=== PATIENT | male | born 1940 | race Caucasian/White ===

== ENCOUNTER 2024-02-25 06:53 | Day surgery (SDC) | payer MEDICARE, BC ==
[2024-02-24 11:50] LABS: BASOPHILS % (AUTO) 0.7 % (0-1); EOSINOPHILS # (AUTO) 0.1 X10'3 (0-0.9); EOSINOPHILS % (AUTO) 1.7 % (0-6); HEMATOCRIT 41.8 % (42.0-52.0); HEMOGLOBIN 14.1 g/dl (14.0-17.9); LYMPHOCYTES # (AUTO) 2.2 X10'3 (1.1-4.8); LYMPHOCYTES % (AUTO) 30.6 % (21-51); MEAN CORPUSCULAR HEMOGLOBIN 34.8 PG (27.0-31.0); MEAN CORPUSCULAR HGB CONC 33.7 g/dL (33.0-36.5); MEAN CORPUSCULAR VOLUME 103.3 FL (78-98); MEAN PLATELET VOLUME 7.7 FL (7.4-10.4); MONOCYTES # (AUTO) 0.6 X10'3 (0-0.9); NEUTROPHILS # (AUTO) 4.2 X10'3 (1.8-7.7); PLATELET COUNT 190 X10'3 (140-440); RED BLOOD COUNT 4.05 X10'6 (4.70-6.10); RED CELL DISTRIBUTION WIDTH 15.3 % (11.5-14.5); WHITE BLOOD COUNT 7.1 X10'3 (4.5-11.0)
[2024-02-24 12:00] LABS: ALBUMIN 4.1 G/DL (3.4-5.0); ANION GAP 10 (8-16); BLOOD UREA NITROGEN 37 MG/DL (7-18); BUN/CREATININE RATIO 19.9 (10.0-20.0); CALCIUM 10.1 MG/DL (8.5-10.1); CHLORIDE 108 MMOL/L (99-107); CREATININE 1.86 MG/DL (0.60-1.10); GLUCOSE 134 MG/DL (70-104); POTASSIUM 4.2 MMOL/L (3.5-5.1); SODIUM 141 MMOL/L (135-145); TOTAL CARBON DIOXIDE 22.8 MMOL/L (24-32); eGFR 35 ML/MIN
[2024-02-24 12:03] LABS: APTT 33 SECONDS (22-32); INR 1.4 INR; PROTHROMBIN TIME 15.1 SECONDS (9.0-12.0)
[~2024-02-25] VITALS: Ht 170.2 cm; Wt 80.7 kg
[2024-02-25] VITALS (30 sets, daily range): BP systolic 86–145; BP diastolic 33–119; PULSE 59–119; RESP 12–30; TEMP 97.8; O2SAT 90–98
[2024-02-25] MEDS ORDERED: ALLO300T8 PO (07:24)
[2024-02-25] MEDS ORDERED: LEVO75TA7 PO (07:24)
[2024-02-25] MEDS ORDERED: OMEG-42 PO (07:24)
[2024-02-25] MEDS ORDERED: BLACK CHERRY (07:24)
[2024-02-25] MEDS ORDERED: CIDE300T3 (07:24)
[2024-02-25] MEDS ORDERED: SIMV10TA98 PO (07:24)
[2024-02-25] MEDS ORDERED: CHOL100053 PO (07:24)
[2024-02-25] MEDS ORDERED: CA C1TAB89 PO (07:24)
[2024-02-25] MEDS ORDERED: MULT-467 PO (07:24)
[2024-02-25] MEDS ORDERED: CRAN200C PO (07:24)
[2024-02-25] MEDS ORDERED: WARF-55 PO (07:24)
[2024-02-25] MEDS ORDERED: LISI10TA27 PO (07:24)
[2024-02-25] MEDS ORDERED: RED1TAB. (07:24)
[2024-02-25] MEDS ORDERED: NIAC500T44 PO (07:24)
[2024-02-25] MEDS: normal saline 1,000 ML IV SCH (09:13)
[2024-02-25] MEDS: LORazepam 0.5 MG tablet PO PRN (09:13)
[2024-02-25] MEDS: sodium bicarbonate 1meq/ml syr 150 ML in dextrose 5%-water 1,000 ML IV SCH (09:13)
[2024-02-25] MEDS: diphenhydrAMINE 25mg capsule PO PRN (09:20)
[2024-02-25] MEDS ORDERED: LIDOcaine 1% (10mg/ml) 2ml vial ONE (09:35)
[2024-02-25] MEDS ORDERED: midazolam 1 mg/ML 2ml injection ONE (09:35)
[2024-02-25] MEDS ORDERED: nitroGLYCERIN 500mcg/5mL D5W 5 ML IV ONE (09:35)
[2024-02-25] MEDS ORDERED: heparin 1,000unit/ml 10ml vial 10 ML ONE (09:35)
[2024-02-25] MEDS ORDERED: fentaNYL/PF 50MCG/1 ML 2ML syringe ONE (09:35)
[2024-02-25] MEDS ORDERED: verapamil 2.5 mg/ml inj IV ONE (09:35)
[2024-02-25] MEDS ORDERED: iohexol 350 MG/ML 50ML vial IV ONE (09:36)
[2024-02-25] MEDS ORDERED: iohexol 350MG/ML 100ml bottle IV ONE ×2 (09:36→10:48)
[2024-02-25] MEDS: acetylcysteine 200 MG/ml 4ml vial PO SCH (09:52)
[2024-02-25] MEDS ORDERED: LIDOcaine 1% 30ml preserv. free vial ONE (10:44)
[2024-02-25] MEDS ORDERED: heparin 25,000 UNIT/250ml bag 250 ML IV ONE (10:59)
[2024-02-25] MEDS ORDERED: nitroGLYCERIN 0.4mg SUBLingual tab SL PRN (12:15)
[2024-02-25] MEDS ORDERED: OXAZEpam 15mg capsule PO PRN (12:15)
[2024-02-25] MEDS ORDERED: metoprolol tartrate 1mg/ml inj IV PRN (12:15)
[2024-02-25] MEDS ORDERED: atropine 0.1mg/ml 10ml syringe IV PRN (12:15)
[2024-02-25] MEDS ORDERED: HYDROcodone/acetaminophen 10/325mg tab PO PRN (12:15)
[2024-02-25] MEDS ORDERED: HYDROcodone/acetaminophen 5mg/325mg tablet PO PRN (12:15)
[2024-02-25] MEDS ORDERED: DOBUTamine-DoBUTrex 500mg/D5W 250 ML IV SCH (12:15)
[2024-02-25] MEDS ORDERED: SODIUM BICARBONATE 150MEQ IN D5W 1,000 ML IV ONE (12:20)
[2024-02-25] MEDS: DOBUTamine 2000 MCG/250ML BAG IV ONE (15:03)
[2024-02-25] MEDS: ACETYLCYSTEINE 200 MG/1 ML 4 ML ORAL SOLUTION PO SCH (18:33)
[2024-03-01 06:15] LABS: ISTAT HGB ART 11.6 g/dl (14.0-17.9); ISTAT Hct ART 34 %PCV (42-52); ISTAT O2 SATURATION ARTERIAL 94 % (95-98); ISTAT SOURCE BLNK
[2024-03-01 06:16] LABS: ISTAT HGB MIX 11.6 g/dl (14.0-17.9); ISTAT Hct MIX 34 %PCV (42-52); ISTAT O2 SATURATION MIX VENOUS 64 % (60-80); ISTAT SOURCE BLNK
== END 2024-02-25 19:00 | disposition home or self-care (01) ==
LOC: SSTAY O 06:53
PROVIDERS: ATTEND Internal Medicine Cardiovascular Disease
DX: I35.0 Nonrheumatic aortic (valve) stenosis (principal); I25.10 Atherosclerotic heart disease of native coronary artery without angina pectoris; I44.7 Left bundle-branch block, unspecified; I42.9 Cardiomyopathy, unspecified; I11.0 Hypertensive heart disease with heart failure; I50.22 Chronic systolic (congestive) heart failure; E03.9 Hypothyroidism, unspecified; E78.5 Hyperlipidemia, unspecified; Z86.73 Personal history of transient ischemic attack (TIA), and cerebral infarction without residual deficits; Z79.01 Long term (current) use of anticoagulants; Z79.890 Hormone replacement therapy; Z79.899 Other long term (current) drug therapy; Z90.49 Acquired absence of other specified parts of digestive tract; Z98.890 Other specified postprocedural states; Z88.0 Allergy status to penicillin; Z83.3 Family history of diabetes mellitus; Z80.9 Family history of malignant neoplasm, unspecified
CPT/HCPCS: 36415; 80048; 82803; 85014; 85025; 85610; 85730; 93005; 93351; 93460; 99152; 99153; A4615; A6258; A6402; C1725; C1751; C1769; C1894; J1250; J1644; J2001; J2250; J3010; J3490; J7030; J7070; Q0163; Q9967; Z7610; 76937; A6449

== ENCOUNTER 2024-02-27 11:19 | Day surgery (SDC) | payer MEDICARE, BC ==
[~2024-02-27] VITALS: Ht 170.2 cm; Wt 82.5 kg
[2024-02-27] VITALS (11 sets, daily range): BP systolic 135–159; BP diastolic 46–88; PULSE 62–78; RESP 12–14; TEMP 98; O2SAT 96–99
[~2024-02-27 11:19] MED LIST: ALLO300T8 PO; BLACK CHERRY; CA C1TAB89 PO; CHOL100053 PO; CIDE300T3; CRAN200C PO; LEVO75TA7 PO; LISI10TA27 PO; MULT-467 PO; NIAC500T44 PO; OMEG-42 PO; RED1TAB.; SIMV10TA98 PO; WARF-55 PO
[2024-02-27] MEDS ORDERED: LORazepam 0.5 MG tablet PO PRN ×2 (11:40→12:15)
[2024-02-27] MEDS: normal saline 1,000 ML IV SCH (12:14)
[2024-02-27] MEDS: diphenhydrAMINE 25mg capsule PO PRN (12:15)
[2024-02-27] MEDS ORDERED: normal saline 1,000 ML IV SCH (12:15)
[2024-02-27] MEDS ORDERED: diphenhydrAMINE 25mg capsule PO PRN (12:15)
[2024-02-27 12:16] LABS: BASOPHILS % (AUTO) 0.6 % (0-1); EOSINOPHILS # (AUTO) 0.1 X10'3 (0-0.9); EOSINOPHILS % (AUTO) 1.8 % (0-6); HEMATOCRIT 34.5 % (42.0-52.0); HEMOGLOBIN 11.5 g/dl (14.0-17.9); LYMPHOCYTES # (AUTO) 1.8 X10'3 (1.1-4.8); LYMPHOCYTES % (AUTO) 21.7 % (21-51); MEAN CORPUSCULAR HEMOGLOBIN 34.3 PG (27.0-31.0); MEAN CORPUSCULAR HGB CONC 33.3 g/dL (33.0-36.5); MEAN PLATELET VOLUME 7.9 FL (7.4-10.4); MONOCYTES # (AUTO) 0.8 X10'3 (0-0.9); MONOCYTES % (AUTO) 9.3 % (2-12); NEUTROPHILS # (AUTO) 5.5 X10'3 (1.8-7.7); NEUTROPHILS % (AUTO) 66.6 % (42-75); PLATELET COUNT 152 X10'3 (140-440); RED BLOOD COUNT 3.35 X10'6 (4.70-6.10); RED CELL DISTRIBUTION WIDTH 15.1 % (11.5-14.5); WHITE BLOOD COUNT 8.2 X10'3 (4.5-11.0)
[2024-02-27] MEDS ORDERED: iohexol 350MG/ML 100ml bottle IV ONE ×2 (12:18→12:24)
[2024-02-27] MEDS ORDERED: LIDOcaine 1% 30ml preserv. free vial ONE (12:18)
[2024-02-27] MEDS ORDERED: heparin 1,000unit/ml 10ml vial 10 ML ONE (12:18)
[2024-02-27] MEDS ORDERED: nitroGLYCERIN 500mcg/5mL D5W 0 ML IV ONE (12:19)
[2024-02-27] MEDS ORDERED: heparin 25,000 UNIT/250ml bag 250 ML IV ONE (12:24)
[2024-02-27] MEDS ORDERED: fentaNYL/PF 50MCG/1 ML 2ML syringe ONE (12:24)
[2024-02-27] MEDS ORDERED: midazolam 1 mg/ML 2ml injection ONE (12:24)
[2024-02-27 12:26] LABS: APTT 27 SECONDS (22-32); PROTHROMBIN TIME 10.9 SECONDS (9.0-12.0)
[2024-02-27 12:30] LABS: ALBUMIN 3.4 G/DL (3.4-5.0); ANION GAP 10 (8-16); BLOOD UREA NITROGEN 29 MG/DL (7-18); BUN/CREATININE RATIO 15.4 (10.0-20.0); CALCIUM 9.3 MG/DL (8.5-10.1); CHLORIDE 106 MMOL/L (99-107); CREATININE 1.88 MG/DL (0.60-1.10); GLUCOSE 145 MG/DL (70-104); SODIUM 140 MMOL/L (135-145); TOTAL CARBON DIOXIDE 23.7 MMOL/L (24-32); eCRCL 27 ML/MIN; eGFR 34 ML/MIN
[2024-02-27] MEDS ORDERED: verapamil 2.5 mg/ml inj IV ONE (12:32)
[2024-02-27] MEDS ORDERED: nitroGLYCERIN 500mcg/5mL D5W 5 ML IV ONE ×2 (14:08→14:22)
[2024-02-27] MEDS ORDERED: clopidogrel 300mg tablet ONE (14:24)
[2024-02-27] MEDS ORDERED: aspirin 325mg tablet ONE (14:55)
[2024-02-27] MEDS ORDERED: ondansetron/PF 4mg/2ml inj IV PRN (15:40)
[2024-02-27] MEDS ORDERED: OXAZEpam 15mg capsule PO PRN (15:40)
[2024-02-27] MEDS ORDERED: proCHLORperazine 10 MG/2 ml inj IV PRN (15:40)
[2024-02-27] MEDS ORDERED: CLOP75TA34 PO (15:56)
[2024-02-27] MEDS ORDERED: ASPI-1265 PO (15:56)
[2024-02-27] MEDS ORDERED: ROSU40TA PO (15:56)
[2024-02-27] MEDS: sodium bicarbonate 1meq/ml syr 150 ML in dextrose 5%-water 1,000 ML IV ONE (17:26)
[2024-02-28] MEDS ORDERED: clopidogrel 75mg tablet PO SCH (08:00)
== END 2024-02-27 20:45 | disposition home or self-care (01) ==
LOC: SSTAY O 11:19
PROVIDERS: ATTEND Internal Medicine Cardiovascular Disease
DX: I25.10 Atherosclerotic heart disease of native coronary artery without angina pectoris (principal); I35.0 Nonrheumatic aortic (valve) stenosis; I44.7 Left bundle-branch block, unspecified; I42.9 Cardiomyopathy, unspecified; I11.0 Hypertensive heart disease with heart failure; I50.22 Chronic systolic (congestive) heart failure; E03.9 Hypothyroidism, unspecified; E78.5 Hyperlipidemia, unspecified; Z86.73 Personal history of transient ischemic attack (TIA), and cerebral infarction without residual deficits; Z87.891 Personal history of nicotine dependence; Z79.01 Long term (current) use of anticoagulants; Z79.890 Hormone replacement therapy; Z79.899 Other long term (current) drug therapy; Z90.49 Acquired absence of other specified parts of digestive tract; Z98.890 Other specified postprocedural states; Z88.0 Allergy status to penicillin; Z83.3 Family history of diabetes mellitus; Z80.9 Family history of malignant neoplasm, unspecified
CPT/HCPCS: 36415; 80048; 85025; 85347; 85610; 85730; 93005; 99152; 99153; A6258; A6402; C1725; C1751; C1769; C1874; C1894; C9600; J1644; J2001; J2250; J3010; J3490; J7030; J7040; J7070; Q0163; Q9967; Z7610; 76937; A6449

== ENCOUNTER → 2024-11-04 | Outpatient (CLI) | payer MEDICARE, BC ==
[~2024-11-04] MED LIST changes: +ASPI-1265 PO; +CLOP75TA34 PO; +IODIXANOL 320 MG/ML INFUS..BTL 100ML IV ONE; +ROSU40TA PO
[2024-11-04 10:54] LABS: BASOPHILS # (AUTO) 0.1 X10'3 (0-0.2); BASOPHILS % (AUTO) 0.7 % (0-1); EOSINOPHILS # (AUTO) 0.1 X10'3 (0-0.9); EOSINOPHILS % (AUTO) 1.7 % (0-6); HEMATOCRIT 36.1 % (42.0-52.0); HEMOGLOBIN 12.1 g/dl (14.0-17.9); LYMPHOCYTES # (AUTO) 1.6 X10'3 (1.1-4.8); LYMPHOCYTES % (AUTO) 22.1 % (21-51); MEAN CORPUSCULAR HEMOGLOBIN 33.9 PG (27.0-31.0); MEAN CORPUSCULAR HGB CONC 33.5 g/dL (33.0-36.5); MEAN CORPUSCULAR VOLUME 101.2 FL (78-98); MEAN PLATELET VOLUME 7.6 FL (7.4-10.4); MONOCYTES # (AUTO) 0.6 X10'3 (0-0.9); MONOCYTES % (AUTO) 7.7 % (2-12); NEUTROPHILS % (AUTO) 67.8 % (42-75); PLATELET COUNT 171 X10'3 (140-440); RED BLOOD COUNT 3.56 X10'6 (4.70-6.10); RED CELL DISTRIBUTION WIDTH 14.2 % (11.5-14.5); WHITE BLOOD COUNT 7.4 X10'3 (4.5-11.0)
[2024-11-04 11:08] LABS: APTT 28 SECONDS (22-32); INR 1.1 INR; PROTHROMBIN TIME 10.9 SECONDS (9.0-12.0)
[2024-11-04 11:17] LABS: ALANINE AMINOTRANSFERASE 33 U/L (12-78); ALBUMIN 3.7 G/DL (3.4-5.0); ALKALINE PHOSPHATASE 92 IU/L (46-116); ANION GAP 8 (8-16); ASPARTATE AMINO TRANSFERASE 26 U/L (10-37); BILIRUBIN,TOTAL 0.3 MG/DL (0.1-1.0); BLOOD UREA NITROGEN 60 MG/DL (7-18); BUN/CREATININE RATIO 23.5 (10.0-20.0); CALCIUM 9.5 MG/DL (8.5-10.1); CHLORIDE 109 MMOL/L (99-107); CREATININE 2.55 MG/DL (0.60-1.10); GLUCOSE 144 MG/DL (70-104); POTASSIUM 4.5 MMOL/L (3.5-5.1); PRO BRAIN NATRIURETIC PEPTIDE 3818 PG/ML (0-450); SODIUM 142 MMOL/L (135-145); TOTAL CARBON DIOXIDE 25.2 MMOL/L (24-32); TOTAL PROTEIN 7.3 G/DL (6.4-8.2); eGFR 24 ML/MIN
--- NOTE | 2024-11-04 12:00 | RADIOLOGY REPORT ---
DI CHEST,TWO VIEWS CLINICAL HISTORY: AV STENOSIS,SOB,CAROTID STENOSIS COMPARISON: None TECHNIQUE: Frontal and lateral view of the chest was obtained FINDINGS: Lines and Tubes: None Lungs: No focal consolidation. Pleura: No effusion. No pneumothorax. Cardiomediastinal contours: Unremarkable Bones: No acute osseous abnormality. IMPRESSION: No acute cardiopulmonary disease.
--- NOTE | 2024-11-04 15:07 | VASCULAR REPORT ---
US CAROTID DOPPLER CLINICAL INDICATION: Preoperative exam TECHNIQUE: Multiple grayscale, color Doppler and spectral Doppler ultrasound images were obtained thr oughout both carotid systems. COMPARISON: None FINDINGS: RIGHT: CCA PSV: 100 cm/s ECA PSV: 292 cm/s ICA PSV: 336 cm/s ICA EDV: 69 cm/s ICA/CCA Ratio: 4.1 Vertebral artery: Patent, antegrade flow. Moderate to marked calcified plaque within the right carotid bulb extending into the internal carotid artery. There is moderate to marked stenosis of the proximal right ICA by atherosclerotic plaque. Sp ectral analysis demonstrates hemodynamically significant ICA stenosis. LEFT: CCA PSV: 98 cm/s ECA PSV: 172 cm/s ICA PSV: 131 cm/s ICA EDV: 23 cm/s ICA/CCA Ratio: 1.6 Vertebral artery: Patent, antegrade flow. Grayscale images demonstrates moderate to marked calcified plaque in the left common carotid artery e xtending into the internal carotid artery. Spectral analysis demonstrates no hemodynamically signific ant CCA or ICA stenosis. IMPRESSION: 1. There is greater than 70% stenosis of the proximal right internal carotid artery by calcified athe rosclerotic plaque. 2. No hemodynamically significant left sided internal carotid artery stenosis.
--- NOTE | 2024-11-05 10:51 | RADIOLOGY REPORT ---
Procedure: CT CTA TAVR Reason for study/Clinical History: Chest pain, evaluate for dissection. Comparison Study: None available at time of dictation. Exam Date: 11/04/2024 12:03 PM TECHNIQUE: Multiplanar reformatted images were generated from volumetric data acquired on a multidetector CT [facility]. Cardiac gating was utilized. Arterial phase images were obtained through the chest, abdomen and pelvis following intravenous administration of contrast material. 80 mL visipaque 320 was injected i ntravenously. CT dose reduction techniques were utilized. 3-D reconstructions were performed on an independent work station. Radiation Dose Information: CT Dose: CTDI volume is 65 mGy. Dose-length product is 2099 mGy*cm FINDINGS: Vascular: Aortic measurements: Aortic annulus: 33.2 x 24.3 mm Sinus of valsalva: right cusp 36.9 mm, left cusp 39.9 mm, non-coronary cusp 38.0 mm Right coronary distance: 25.5 Left coronary distance: 16.5 ST junction 28.9 mm Ascending aorta 34.3 mm Aortic arch 27 mm Descending aorta 27 mm Aortic hiatus 28 mm Upper abdominal aorta 23 mm Minimal abdominal aorta 11.2 mm Right common iliac 6.04 mm, tortuosity index 1.33 Left common iliac 6.9 mm, tortuosity index 1.19 There is normal caliber of aorta. No aortic dissection. Aortic arch anatomy is conventional. There is conventional coronary artery anatomy. Diffuse calcified atherosclerotic plaque. Calcified plaque in the bilateral carotid bulbs. 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 No central pulmonary embolism. There is normal dimension of the main pulmonary artery. Sflg-xg-zrjtyngl cardiomegaly with dilation of the left atrium and ventricle. There are no intracardi ac filling defects. No pericardial effusion. Mediastinum: Subcentimeter mediastinal lymph nodes. Lungs: Atelectasis and scarring in the lung bases. Pleura: No effusion or pneumothorax. Chest wall: No acute abnormality. Abdomen and Pelvis: Liver: Normal in appearance. Gallbladder: Normal in appearance. Spleen: Normal in appearance. Pancreas: Normal in appearance. Adrenals: Normal in appearance. Kidneys: Bilateral renal cysts. No hydronephrosis. Bowel: Postsurgical changes in the sigmoid colon. Question of a colovesicular fistula in the region o f prior surgery. Scattered colonic diverticulosis. No evidence of small-bowel obstruction. Peritoneum: No free air or free fluid. Lymph nodes: No lymphadenopathy by CT size criteria. Pelvic structures: Bladder wall thickening and tenting in region of prior bowel surgery. Bones: Normal in appearance. IMPRESSION: 1. TAVR planning with vascular measurements as described above. 2. Diffuse calcified atherosclerotic disease. Calcified plaque involving the bilateral carotid bulbs . Consider further evaluation with CTA of the neck. 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 3. Postsurgical changes in the sigmoid colon with adjacent bladder wall thickening and tenting, a col ovesicular fistula is not excluded. Consider further evaluation with barium enema and/or cystogram. 4. Bilateral renal cysts. Xvtt-ze-zrxfylap cardiomegaly with dilation of the left atrium and ventricl e. HS:Y
== END | disposition home or self-care (01) ==
LOC: RAD 10:20
PROVIDERS: ATTEND Internal Medicine Cardiovascular Disease
DX: I51.7 Cardiomegaly (principal); I70.0 Atherosclerosis of aorta; I35.0 Nonrheumatic aortic (valve) stenosis; R06.02 Shortness of breath; I65.29 Occlusion and stenosis of unspecified carotid artery; I70.91 Generalized atherosclerosis; I70.1 Atherosclerosis of renal artery; R59.0 Localized enlarged lymph nodes; J98.11 Atelectasis; N28.1 Cyst of kidney, acquired
CPT/HCPCS: 36415; 71046; 71275; 74174; 75572; 80053; 83880; 85025; 85610; 85730; 93880; Q9967

== ENCOUNTER 2025-03-02 10:59 | Day surgery (SDC) | payer MEDICARE, BC ==
[2025-03-01 11:55] LABS: MEAN PLATELET VOLUME 8.3 FL (7.4-10.4); RED CELL DISTRIBUTION WIDTH 15.2 % (11.5-14.5)
[2025-03-01 12:01] LABS: CREATININE 2.18 MG/DL (0.60-1.10); TOTAL CARBON DIOXIDE 18.1 MMOL/L (24-32); eGFR 29 ML/MIN
[2025-03-01 12:36] LABS: APTT 29 SECONDS (22-32); INR 1.1 INR
[~2025-03-02] VITALS: Ht 167.6 cm; Wt 73.3 kg
[~2025-03-02 10:59] MED LIST changes: -IODIXANOL 320 MG/ML INFUS..BTL 100ML IV ONE
[2025-03-02 11:40] VITALS: BP 108/51; PULSE 74; RESP 16; TEMP 98; O2SAT 97
--- NOTE | 2025-03-02 12:00 | ELECTROCARDIOGRAPH REPORT ---
[facility] Test Date: 2025-03-02 Test Time: 11:59:26 Pat Name: YAMILKA PIEDRA Department: [facility] Patient ID: [facility]-[id number] Room: Gender: M Traffic Control Flagger: : 1940 Requested By: ЕКАТЕРИНА WILEY Order Number: [id number] Reading MD: Dr. BIBI Wiley Measurements Intervals [place] Rate: 63 P: 47 NH: 223 QRS: -1 QRSD: 162 T: 167 QT: 449 QTc: 460 Interpretive Statements Sinus rhythm Prolonged NH interval Left bundle branch block Baseline wander in lead(s) V6 Electronically Signed On 03-02-2025 16:54:[address] BIBI Wiley Please click the below link to view image of tracing.
[2025-03-02] MEDS ORDERED: CLOP-32 PO (12:16)
[2025-03-02] MEDS ORDERED: EMPA10TA PO (12:16)
[2025-03-02] MEDS ORDERED: CARV6.253 PO (12:16)
[2025-03-02 12:30] VITALS: RESP 16; O2SAT 97
[2025-03-02] MEDS: clindamycin-Cleocin 900mg/D5W 50 ML IV ONE (12:34)
[2025-03-02] MEDS ORDERED: iohexol 350 MG/ML 50ML vial IV ONE (15:41)
[2025-03-02] MEDS ORDERED: fentaNYL/PF 50MCG/1 ML 2ML syringe ONE (15:41)
[2025-03-02] MEDS ORDERED: vancomycin 1,000mg inj ONE (15:41)
[2025-03-02] MEDS ORDERED: LIDOcaine 1% W/epiNEPHrine 1:100,000 20ml vial ONE (15:41)
[2025-03-02] MEDS ORDERED: midazolam 1 mg/ML 2ml injection ONE (15:41)
[2025-03-02 18:00] VITALS: BP 137/74; PULSE 93; RESP 13; TEMP 97.2; O2SAT 99
[2025-03-02 22:00] VITALS: BP 122/57; PULSE 96; RESP 14; TEMP 97; O2SAT 97
[2025-03-03] VITALS (11 sets, daily range): BP systolic 89–122; BP diastolic 45–72; PULSE 70–81; RESP 13–18; TEMP 97.3–97.4; O2SAT 97–98
[2025-03-03] MEDS ORDERED: fentaNYL/PF 50MCG/1 ML 2ML syringe ONE ×2 (06:01→08:24)
[2025-03-03] MEDS ORDERED: vancomycin 1,000mg inj ONE (06:01)
[2025-03-03] MEDS ORDERED: midazolam 1 mg/ML 2ml injection ONE (06:01)
[2025-03-03] MEDS ORDERED: iohexol 350 MG/ML 50ML vial IV ONE (06:01)
[2025-03-03] MEDS ORDERED: LIDOcaine 1% W/epiNEPHrine 1:100,000 20ml vial ONE (06:01)
[2025-03-03] MEDS: sodium bicarbonate 1meq/ml inj 150 ML in dextrose 5%-water 1,000 ML IV SCH (07:00)
[2025-03-03] MEDS ORDERED: HYDROcodone/acetaminophen 10/325mg tab PO PRN (09:45)
[2025-03-03] MEDS ORDERED: normal saline 1000ml 1,000 ML IV SCH (09:45)
[2025-03-03] MEDS: HYDROcodone/acetaminophen 5mg/325mg tablet PO PRN (10:09)
--- NOTE | 2025-03-03 10:36 | ELECTROCARDIOGRAPH REPORT ---
[facility] Test Date: 2025-03-03 Test Time: 10:34:27 Pat Name: YAMILKA PIEDRA Department: [address] Room: [place] [address] A Gender: M Community Affairs Director: ELIAZAR : 1940 Requested By: ЕКАТЕРИНА WILEY Order Number: [id number] Reading MD: Dr. BIBI Wiley Measurements Intervals [place] Rate: 69 P: 101 CO: 80 QRS: -90 QRSD: 147 T: 91 QT: 526 QTc: 564 Interpretive Statements Atrial-sensed ventricular-paced complexes No further analysis attempted due to paced rhythm Electronically Signed On 03-03-2025 16:32:[address] BIBI Wiley Please click the below link to view image of tracing.
[2025-03-03] MEDS: vancomycin/NS 1 GM ADD-VANTAGE 250 ML X 1 DOSE IV ONE (11:59)
[2025-03-03 12:00] LABS: INR 1.1 INR
--- NOTE | 2025-03-03 13:41 | RADIOLOGY REPORT ---
DI HIP UNILATERAL 2 VIEWS, INDICATION: fall with left elbow pain left hip pain. TECHNICAL DATA: frog lateral views were obtained of the hip. COMPARISON: None FINDINGS: The hip is normally located. The hip joint is normally maintained with no marginal osteophytes No left hip fracture is identified. The left sacroiliac joint appears normal. IMPRESSION: No acute fracture of the hip.
--- NOTE | 2025-03-03 13:57 | RADIOLOGY REPORT ---
CHEST RADIOGRAPH Indication: post pacemaker insertion @ 1100 Technique: Single frontal view of the chest was obtained Comparison: DI CHEST,TWO VIEWS on DOS: 11/04/24 FINDINGS: Lines and Tubes: Left-sided pacemaker. Lungs: No focal consolidation. Pleura: No effusion. No pneumothorax. Cardiomediastinal contours: Unremarkable Bones: No acute osseous abnormality. IMPRESSION: No acute cardiopulmonary disease.
[2025-03-03] MEDS ORDERED: CLIN-224 PO (14:00)
[2025-03-03] MEDS ORDERED: carvedilol 6.25mg tablet PO SCH (20:00)
[2025-03-04] MEDS ORDERED: EMPAGLIFLOZIN 10 MG TABLET PO SCH (08:00)
[2025-03-04] MEDS ORDERED: zinc sulfate 220mg capsule PO SCH (08:00)
[2025-03-04] MEDS ORDERED: multivitamins, therapeutics tablet PO SCH (08:00)
[2025-03-04] MEDS ORDERED: levoTHYROXINE 75mcg tablet PO SCH (08:00)
[2025-03-04] MEDS ORDERED: cholecalciferol (vitamin D3) 1,000 unit (25mcg) tablet PO SCH (08:00)
[2025-03-04] MEDS ORDERED: calcium carbonate/vitamin D3 tablet PO SCH (08:00)
[2025-03-04] MEDS ORDERED: CRANBERRY EXTRACT 200 MG PO SCH (08:00)
--- NOTE | 2025-03-04 15:15 | RADIOLOGY REPORT ---
EXAM: DI ELBOW,LIMITED (AP/LAT) HISTORY: fall with left elbow pain. COMPARISON: None TECHNIQUE: Three views of the left elbow were performed. FINDINGS: No acute fracture or effusion are identified about the left elbow. There is suboptimal angulation on all 3 films, limiting overall evaluation. IMPRESSION: 1. No acute fracture of the left elbow. 2. Evaluation limited by suboptimal angulation on all 3 images. Consider repeat examination versus fo llow-up imaging with noncontrast CT or MRI.
[2025-03-04] MEDS ORDERED: warfarin 5mg tablet PO SCH (21:00)
--- NOTE | 2025-03-09 18:38 | CARDIOLOGY REPORT ---
DATE OF SERVICE: 03/03/2025 DICTATING PHYSICIAN: BIBI Aguirre MD PRIMARY PHYSICIAN: George Lagunas D.O. CANDY SPREADER: BIBI Aguirre M.D. INDICATION: The patient is an 84-year-old male with history of hypertension, hyperlipidemia, CVA, CAD, coronary artery stenting, cardiomyopathy, and CHF. The patient was sent for TAVR evaluation, but it was thought that his aortic stenosis was not done, but they recommended aggressive medical therapy with BiV ICD implantation and subsequent evaluation later on and TAVR. After discussing risks, benefits, alternative options, the patient prefers to proceed with BiV ICD. His EKG shows a sinus rhythm 63 per minute with a QRS duration of 162 milliseconds. The patient had mechanical mitral valve. since then he has been on Coumadin. Risks, benefits, alternative options were discussed. Informed consent was obtained. PROCEDURES: 1. Fluoroscopy. 2. BiV ICD. 3. Conscious sedation time of 1 hour and 45 minutes. 4. Coronary sinus venography. DESCRIPTION OF PROCEDURE: Left infraclavicular area was prepped and draped in usual fashion and the procedure was carried out in local anesthesia. Three separate accesses obtained to the left subclavian vein using micropuncture technique. A horizontal incision placed in the left infraclavicular area. Using blunt dissection and electrocautery, subcutaneous prepectoral pacemaker pocket was formed. External ends of J wires were retrieved into the pacemaker pocket and through one of them 9-Micronesian sheaths were advanced over the subclavian vein through which RV lead had advanced to RV apex, screwed into the RV. Appropriate pacing and sensing thresholds obtained. Sheath removed by peel-away technique and the lead anchored to subcutaneous tissue with Ethibond. . Next coronary sinus was engaged with Worly catheter. catheter was advanced, into right ventricle And it was pulled back into right atrium with counter-clockwise rotation and subsequently engaging coronary sinus. J-wire was advanced into the coronary sinus. And coronary sinus catheter was advanced to the coronary sinus. . Using a balloon tipped catheter coronary sinus venography was done. it was taken to the was done. Good lateral vein was identified. Decide lateral branch was cannulated with PT choice wire. Choice PT wire was advanced to the lateral branch . over which coronary sinus lead was advanced into the lateral branch.. Appropriate pacing and sensing thresholds were obtained. Attempts to anchor The coronary sinus in the midportion of the lateral vein were unsuccessful . Hence it was taken down to the Distal portion of the vein and was wedged with good appropriate pacing and sensing thresholds were obtained. Sheath removed by peel-away technique and the lead anchored to subcutaneous with Ethibond. Through the third, J-wire atrial lead advanced to the right atrium. It was screwed into the right atrial appendage. Sheath removed by peel-away technique and the lead anchored to subcutaneous with Ethibond. Pocket irrigated with copious antibiotic solution. Leads were connected to appropriate sockets of the pulse generator. D Stat was injected. Pacemaker suspended in the pacemaker pocket. Pocket closed with continuous 0 Vicryl, followed by interrupted 0 Vicryl. Third layer of interrupted 2-0 Vicryl applied. Skin approximated with staple. Pressure dressing was applied. The patient tolerated the procedure with no complication. TECHNICAL INFORMATION: Device used Medtronic MRI compatible [employer], model# [id number], serial number [id number], [employer]onic, 03/03/2025, left pectoral location. RIGHT ATRIAL LEAD: Model# 4076, 52 cm long, serial# [id number], [employer], 03/03/2025, P-wave amplitude of 2.5 millivolts, impedance of 513 ohms, pacing threshold of 1 at 0.4 milliseconds. RV LEAD: Model# [id number], [id number], [employer]onic ____ RV apex. R-wave amplitude of 20 millivolts, impedance of 319 ohms, pacing threshold 0.1 volts at 0.4 milliseconds. LV LEAD: Model# 4798, 88 cm long, serial# [id number], [employer]onic, ____ R-wave amplitude of 21.5 millivolts, impedance of 513 ohms, pacing threshold 1.5 volts at 0.3 milliseconds. IMPRESSION: An 84-year-old with cardiomyopathy and LVEF of 20% to 25%. With Left bundle branch block underwent successful BiV ICD with no complication. Recommend continued GDM T therapy. BIBI Aguirre MD TID: [id number] RECEIPT: [id number] MARLINE/CHRISTA/RANJEET MTDD
== END 2025-03-03 17:00 | disposition still patient (30) ==
LOC: SSTAY O 10:59 → UNDOADMIN 16:18 → PCU 3S 16:18 → UNDODISIN 03-03 17:00 → SSTAY O 03-03 17:00
PROVIDERS: ATTEND Internal Medicine Cardiovascular Disease
DX: I49.9 Cardiac arrhythmia, unspecified (principal); I42.9 Cardiomyopathy, unspecified; I35.0 Nonrheumatic aortic (valve) stenosis; I44.7 Left bundle-branch block, unspecified; I25.10 Atherosclerotic heart disease of native coronary artery without angina pectoris; R94.31 Abnormal electrocardiogram [ECG] [EKG]; I13.0 Hypertensive heart and chronic kidney disease with heart failure and stage 1 through stage 4 chronic kidney disease, or unspecified chronic kidney disease; N18.9 Chronic kidney disease, unspecified; I50.22 Chronic systolic (congestive) heart failure; E03.9 Hypothyroidism, unspecified; E78.5 Hyperlipidemia, unspecified; Z86.73 Personal history of transient ischemic attack (TIA), and cerebral infarction without residual deficits; Z79.01 Long term (current) use of anticoagulants; Z79.890 Hormone replacement therapy; Z79.899 Other long term (current) drug therapy; Z90.49 Acquired absence of other specified parts of digestive tract; Z98.890 Other specified postprocedural states; Z88.0 Allergy status to penicillin; Z83.3 Family history of diabetes mellitus
CPT/HCPCS: 33225; 33249; 36415; 71045; 73070; 73502; 80048; 84443; 85025; 85610; 85730; 87081; 93005; 99152; 99153; A4565; A6258; A6402; C1769; C1882; C1895; C1900; J2250; J3010; J3373; J3490; J7030; Q9967; Z7610; A6449; C1898; G0378